=== PATIENT | male | born 1995 | race Caucasian/White ===

== ENCOUNTER 2017-06-26 00:25 | Emergency (ER) | payer BC ==
--- NOTE | 2017-06-26 00:46 | EDM.PDOC ---
ED HPI GENERAL MEDICAL PROBLEM - General Chief Complaint: Allergic Reaction Stated Complaint: RASH Time Seen by Provider: 06/26/17 00:37 - History of Present Illness INITIAL COMMENTS - FREE TEXT/NARRATIVE: HISTORY AND PHYSICAL: History of present illness: Patient is a 22-year-old male who presents stating that he broke out in a rash on his upper body/upper extremities and face without any known cause and now in the ER it is significantly improved. The patient did not take any new medications and/or eat any new foods and has had no use of new products. He does not take any medications prior to coming here but said it was very itchy and mostly localized to the upper body and face but all those symptoms have significantly resolved. Not complaining of chest pain or shortness of breath and no systemic complaints prior to this Review of systems: As per history of present illness and below otherwise all systems reviewed and negative. Past medical history: As per history of present illness and as reviewed below otherwise noncontributory. Surgical history: As per history of present illness and as reviewed below otherwise noncontributory. Social history: No reported history of drug or alcohol abuse. Family history: As per history of present illness and as reviewed below otherwise noncontributory. Physical exam: Gen.: Well-developed well-nourished male who is nontoxic and speaking clearly. Vital signs are noted by me HEENT: Atraumatic, normocephalic, pupils reactive, negative for conjunctival pallor or scleral icterus, mucous membranes moist, throat clear, neck supple, nontender, trachea midline. No swelling of the face or the lips/tongue or the oropharynx Lungs: Clear to auscultation, breath sounds equal bilaterally, chest nontender. Heart: S1S2, regular rate and rhythm no overt murmurs Abdomen: Soft, nondistended, nontender. NABS. Pelvis: Deferred Skin: There is some faint pinkish urticaria seen at the left anterior shoulder but the remainder of the symptoms that the patient described have since resolved. There are no other lesions seen and turgor is normal Genitourinary: Deferred. Rectal: Deferred. Extremities: Atraumatic, negative for cords or calf pain. Neurovascular unremarkable. Neuro: Awake, alert, oriented. Cranial nerves II through XII unremarkable. Cerebellum unremarkable. Motor and sensory unremarkable throughout. Exam nonfocal. Diagnostics: [] Therapeutics: he was offered Benadryl and declines Impression: Contact reaction/exanthem resolved Definitive disposition and diagnosis as appropriate pending reevaluation and review of above. no pain Pain Score (Numeric/FACES): 0 - Related Data Allergies Allergy/AdvReac Type Severity Reaction Status Date / Time No Known Allergies Allergy Verified 06/26/17 00:37 Home Meds: Home Meds . [No Known Home Meds] 06/26/17 [History] Past Medical History HEENT History: Reports: None Cardiovascular History: Reports: None Respiratory History: Reports: None Gastrointestinal History: Reports: None Genitourinary History: Reports: None Musculoskeletal History: Reports: None Neurological History: Reports: None Psychiatric History: Reports: None Endocrine/Metabolic History: Reports: None Hematologic History: Reports: None Immunologic History: Reports: None Oncologic (Cancer) History: Reports: None Dermatologic History: Reports: None - Infectious Disease History Infectious Disease History: Reports: None Social & Family History - Family History Family Medical History: Noncontributory - Tobacco Use Smoking Status *Q: Never Smoker - Caffeine Use Caffeine Use: Reports: Soda - Recreational Drug Use Recreational Drug Use: No ED ROS ALLERGIC REACTION - Review of Systems Review Of Systems: ROS reveals no pertinent complaints other than HPI. ED EXAM GENERAL NO PERIP PULSE - Physical Exam Exam: See Below (see dictation) Course - Vital Signs Last Recorded V/S: Last Vital Signs Temp 36.6 C 06/26/17 00:37 Pulse 79 06/26/17 00:37 Resp 18 06/26/17 00:37 BP 115/60 06/26/17 00:37 Pulse Ox 96 06/26/17 00:37 Departure - Departure Time of Disposition: 00:45 Disposition: Home, Self-Care 01 Condition: Good Clinical Impression: Contact dermatitis Qualifiers: Contact dermatitis type: unspecified Contact dermatitis trigger: unspecified trigger Qualified Code(s): L25.9 - Unspecified contact dermatitis, unspecified cause - Discharge Information Referrals: Steven Christopher MD [Primary Care Provider] - Additional Instructions: The following information is given to patients seen in the emergency department who are being discharged to home. This information is to outline your options for follow-up care. We provide all patients seen in our emergency department with a follow-up referral. The need for follow-up, as well as the timing and circumstances, are variable depending upon the specifics of your emergency department visit. If you don't have a primary care physician on staff, we will provide you with a referral. We always advise you to contact your personal physician following an emergency department visit to inform them of the circumstance of the visit and for follow-up with them and/or the need for any referrals to a consulting specialist. The emergency department will also refer you to a specialist when appropriate. This referral assures that you have the opportunity for followup care with a specialist. All of these measure are taken in an effort to provide you with optimal care, which includes your followup. Under all circumstances we always encourage you to contact your private physician who remains a resource for coordinating your care. When calling for followup care, please make the office aware that this follow-up is from your recent emergency room visit. If for any reason you are refused follow-up, please contact the [facility] emergency department at and ask to speak to the emergency department charge nurse. [facility] Primary care- Internal Medicine and Family [address] [address] Please use an [id number] antihistamine for the next 24 hours such as Claritin or Jessy or use Benadryl if you do not need to drive. Please try to explore your world to see if you can identify the trigger and contact one of our providers in the clinic for further care and evaluation next week. Return to ER as needed and as discussed
== END 2017-06-26 00:54 | disposition home or self-care (01) ==
LOC: MW.ED 00:25
DX: L25.9 Unspecified contact dermatitis, unspecified cause (principal)
CPT/HCPCS: 99282

== ENCOUNTER 2018-10-19 23:31 | Emergency (ER) | payer BC ==
[2018-10-19] MEDS ORDERED: Bacitracin Oint 1 GM U/D Packet TOP ONE (23:48)
--- NOTE | 2018-10-20 00:22 | EDM.PDOC ---
ED HPI GENERAL MEDICAL PROBLEM - General Chief Complaint: Laceration Stated Complaint: CUT ON LT ARM Time Seen by Provider: 10/20/18 00:17 Source of Information: Reports: Patient - History of Present Illness INITIAL COMMENTS - FREE TEXT/NARRATIVE: HISTORY AND PHYSICAL: History of present illness: [Patient presents with laceration on his left forearm 5 cm in length on the anterior forearm, he cut his flash with a golf hook, appears to just be a superficial laceration, however he is having some difficulty with flexing his fifth digit on the left Watt at times he has been able to flex fully and then other times only near to full flexion he could possibly have made the belly of the flexor muscle group however a golf hook should not result in that deep of a lesion No fever nausea vomiting chills sweats Review of systems: As per history of present illness and below otherwise all systems reviewed and negative. Past medical history: As per history of present illness and as reviewed below otherwise noncontributory. Surgical history: As per history of present illness and as reviewed below otherwise noncontributory. Social history: No reported history of drug or alcohol abuse. Family history: As per history of present illness and as reviewed below otherwise noncontributory. Physical exam: HEENT: Atraumatic, normocephalic, pupils reactive, negative for conjunctival pallor or scleral icterus, mucous membranes moist, throat clear, neck supple, nontender, trachea midline. Lungs: Clear to auscultation, breath sounds equal bilaterally, chest nontender. Heart: S1S2, regular, negative for clicks, rubs, or JVD. Abdomen: Soft, nondistended, nontender. Negative for masses or hepatosplenomegaly. Negative for costovertebral tenderness. Pelvis: Stable nontender. Genitourinary: Deferred. Rectal: Deferred. Extremities: Atraumatic, negative for cords or calf pain. Neurovascular unremarkable. Neuro: Awake, alert, oriented. Cranial nerves II through XII unremarkable. Cerebellum unremarkable. Motor and sensory unremarkable throughout. Exam nonfocal. Diagnostics: [Clinical ] Therapeutics: [tetenus status is up-to-date Wound cleansed and explored closed with #6 4-0 Prolene sutures interrupted No complication no complaint Lidocaine 3 mL for anesthesia Sutures out in 10 days ER referral for Dr. Gilmore for tomorrow to evaluate and treat concerning this decreased flexion of the fifth digit ] Impression: [ laceration, 5 cm, linear simple ] Definitive disposition and diagnosis as appropriate pending reevaluation and review of above. - Related Data Allergies Allergy/AdvReac Type Severity Reaction Status Date / Time No Known Allergies Allergy Verified 10/19/18 23:43 Home Meds: Home Meds . [No Known Home Meds] 06/26/17 [History] Past Medical History - Past Health History Medical/Surgical History: Denies Medical/Surgical History HEENT History: Reports: None Cardiovascular History: Reports: None Respiratory History: Reports: None Gastrointestinal History: Reports: None Genitourinary History: Reports: None Musculoskeletal History: Reports: None Neurological History: Reports: None Psychiatric History: Reports: None Endocrine/Metabolic History: Reports: None Hematologic History: Reports: None Immunologic History: Reports: None Oncologic (Cancer) History: Reports: None Dermatologic History: Reports: None - Infectious Disease History Infectious Disease History: Reports: None Social & Family History - Family History Family Medical History: Noncontributory - Tobacco Use Smoking Status *Q: Never Smoker Second Hand Smoke Exposure: No - Caffeine Use Caffeine Use: Reports: Soda - Recreational Drug Use Recreational Drug Use: No ED ROS GENERAL - Review of Systems Review Of Systems: See Below ED EXAM, SKIN/RASH Exam: See Below Course - Vital Signs Last Recorded V/S: Last Vital Signs Temp 97.6 F 10/19/18 23:34 Pulse 68 10/19/18 23:34 Resp 17 10/19/18 23:34 BP 113/77 10/19/18 23:34 Pulse Ox 97 10/19/18 23:34 - Orders/Labs/Meds Meds: Medications Discontinued Medications Generic Name Dose Route Start Last Admin Trade Name Valentin PRN Reason Stop Dose Admin Bacitracin 1 dose 10/19/18 23:48 10/20/18 00:17 Bacitracin Oint 1 Gm TOP 10/19/18 23:49 1 dose ONETIME ONE Administration Lidocaine HCl 10 ml 10/19/18 23:48 10/20/18 00:17 Xylocaine-Mpf 1% INJECT 10/19/18 23:49 10 ml ONETIME ONE Administration Departure - Departure Time of Disposition: 00:21 Disposition: Home, Self-Care 01 Condition: Good Clinical Impression: Laceration - Discharge Information Referrals: PCP,None [Primary Care Provider] - Additional Instructions: Standard wound care instruction as discussed Return if symptoms persist or worsen Sutures out in 10 days ER referral for Dr. Gilmore for to evaluate and treat for tomorrow [facility] [address], [address] [place] [address] The following information is given to patients seen in the emergency department who are being discharged to home. This information is to outline your options for follow-up care. We provide all patients seen in our emergency department with a follow-up referral. The need for follow-up, as well as the timing and circumstances, are variable depending upon the specifics of your emergency department visit. If you don't have a primary care physician on staff, we will provide you with a referral. We always advise you to contact your personal physician following an emergency department visit to inform them of the circumstance of the visit and for follow-up with them and/or the need for any referrals to a consulting specialist. The emergency department will also refer you to a specialist when appropriate. This referral assures that you have the opportunity for follow-up care with a specialist. All of these measure are taken in an effort to provide you with optimal care, which includes your follow-up. Under all circumstances we always encourage you to contact your private physician who remains a resource for coordinating your care. When calling for follow-up care, please make the office aware that this follow-up is from your recent emergency room visit. If for any reason you are refused follow-up, please contact the [facility] emergency department at and asked to speak to the emergency department charge nurse.
== END 2018-10-20 00:25 | disposition home or self-care (01) ==
LOC: MW.ED 23:31
DX: S51.812A Laceration without foreign body of left forearm, initial encounter (principal); W26.8XXA Contact with other sharp object(s), not elsewhere classified, initial encounter
CPT/HCPCS: 12002; 99282; J2001; 99283

== ENCOUNTER 2024-04-10 09:58 | Day surgery (SDC) | payer OTHER ==
[2024-04-10 10:49] LABS: BASOPHILS ABSOLUTE AUTO 0.04 K/uL (0.00-0.20); BASOPHILS PERCENT AUTO 0.3 % (0.0-1.0); EOSINOPHILS ABSOLUTE AUTO 0.06 K/uL (0.00-0.45); EOSINOPHILS PERCENT AUTO 0.5 % (0.0-6.0); HEMATOCRIT 40.2 % (42.0-52.0); HEMOGLOBIN 14.4 g/dL (14.0-18.0); IMMATURE GRAN ABSOLUTE AUTO 0.03 K/uL (0.00-0.05); IMMATURE GRAN PERCENT AUTO 0.3 % (0.0-0.4); LYMPHOCYTES PERCENT AUTO 7.6 % (24.0-44.0); MEAN CORPUSCULAR HEMOGLOBIN 29.3 pg (28.0-32.0); MEAN CORPUSCULAR HGB CONC 35.8 g/dL (32.0-36.0); MEAN CORPUSCULAR VOLUME 81.7 fL (83.0-99.0); MEAN PLATELET VOLUME 8.9 fL (9.4-12.4); MONOCYTES ABSOLUTE AUTO 0.73 K/uL (0.00-0.80); MONOCYTES PERCENT AUTO 6.1 % (0.0-8.0); NEUTROPHILS ABSOLUTE AUTO 10.16 K/uL (1.80-7.70); NEUTROPHILS PERCENT AUTO 85.2 % (41.0-71.0); PLATELET COUNT,PLT 248 K/uL (150-400); RED BLOOD CELL COUNT 4.92 M/uL (4.52-5.90); WHITE BLOOD CELL COUNT,WBC 11.92 K/uL (3.9-11.3)
[2024-04-10] MEDS: Ketorolac 30 MG/ML SDV IVPUSH STA (10:49)
[2024-04-10] MEDS: Ondansetron 4 MG/2 ML SDV IVPUSH STA (10:49)
[2024-04-10 11:27] LABS: A/G RATIO 1.3 (0.9-1.6); CALCIUM 9.6 mg/dL (8.5-10.1); CARBON DIOXIDE,CO2 30.5 mmol/L (21.0-32.0); CREATININE 1.1 mg/dL (0.8-1.3); EST CRCL DRUG DOSING (CG) 110.97 mL/min; POTASSIUM,K 3.9 mmol/L (3.5-5.1); PROTEIN TOTAL,TP 7.1 g/dL (6.4-8.2)
[2024-04-10] MEDS: Iopamidol 755 MG/ML 500 ML Multipack Bottle IVPUSH STA (12:07)
[2024-04-10] MEDS ORDERED: Ropivacaine 0.5% 5 MG/ML 30 ML SDV ONE (13:12)
[2024-04-10] MEDS ORDERED: dexmedeTOMIDine HCl 200 MCG/2 ML SDV ONE (13:18)
[2024-04-10] MEDS ORDERED: Morphine 10 MG/ML SDV ONE (13:18)
[2024-04-10] MEDS ORDERED: Propofol 200 MG/20 ML SDV ONE (13:19)
[2024-04-10] MEDS ORDERED: Water For Injection, Sterile 20 ML ONE (13:19)
[2024-04-10] MEDS ORDERED: Bupivacaine 0.5% 30 ML SDV ONE (13:21)
[2024-04-10] MEDS ORDERED: fentaNYL 100 MCG/2 ML SDV ONE (13:21)
[2024-04-10 13:26] LABS: APPEARANCE,URINE CLEAR; BILIRUBIN,URINE NEGATIVE (NEGATIVE); COLOR,URINE YELLOW; GLUCOSE,URINE NEGATIVE (NEGATIVE); KETONES,URINE NEGATIVE (NEGATIVE); LEUKOCYTE ESTERASE,URINE NEGATIVE (NEGATIVE); NITRITE,URINE NEGATIVE (NEGATIVE); OCCULT BLOOD,URINE NEGATIVE (NEGATIVE); PH,URINE 6.5 (5.0-8.0); PROTEIN,URINE NEGATIVE (NEGATIVE); UROBILINOGEN,URINE 0.2 EU/dL (<2.0)
[2024-04-10] MEDS: Piperacillin/Tazobactam 4.5 GM in Sodium Chloride 0.9% 100 ML IV STA (13:33)
[2024-04-10] MEDS ORDERED: Lidocaine 2% 11 ML Jelly Filled Syringe ONE (14:11)
[2024-04-10] MEDS ORDERED: Ketamine HCL/NACL, ISO-OSM 50 MG/5 ML Syringe ONE (14:45)
[2024-04-10] MEDS ORDERED: Rocuronium Bromide 50 MG/5 ML Syringe ONE (14:52)
[2024-04-10] MEDS ORDERED: Famotidine 20 MG/2 ML SDV ONE (14:57)
[2024-04-10] MEDS ORDERED: Dexamethasone 4 MG/ML 5 ML MDV ONE (15:14)
[2024-04-10] MEDS ORDERED: Sugammadex Sodium 200 MG/2 ML VIAL IV ONE (15:14)
[2024-04-10] MEDS ORDERED: Ondansetron 4 MG/2 ML SDV ONE (15:14)
== END 2024-04-10 16:30 | disposition home or self-care (01) ==
LOC: MW.ED 09:58 → MW.SDS 15:05
PROVIDERS: ATTEND Surgery
DX: K35.33 Acute appendicitis with perforation, localized peritonitis, and gangrene, with abscess (principal); K42.9 Umbilical hernia without obstruction or gangrene; F17.290 Nicotine dependence, other tobacco product, uncomplicated
CPT/HCPCS: 36415; 44970; 74177; 80053; 81003; 83690; 85025; 96365; 96375; 99285; A9270; J0131; J0665; J1100; J1885; J2270; J2405; J2543; J2704; J2795; J3010; J3490; Q9967; 00840; 64488